=== PATIENT | female | born 2000 | race Caucasian/White ===

== ENCOUNTER 2023-08-05 12:11 | Emergency (ER) | payer BC ==
[~2023-08-05] VITALS: Ht 170.2 cm; Wt 120.2 kg
[2023-08-05 13:44] VITALS: TEMP 98.9
[2023-08-05 16:07] VITALS: BP 132/76
[2023-08-05 16:08] VITALS: O2SAT 100
== END 2023-08-05 16:08 | disposition home or self-care (01) ==
LOC: ER 12:11
DX: J06.9 Acute upper respiratory infection, unspecified (principal); Z20.822 Contact with and (suspected) exposure to COVID-19
CPT/HCPCS: 99283; 87426; 87804 ×2; C9803